=== PATIENT | male | born 1955 | race African-American/Black ===

== ENCOUNTER 2016-12-27 07:22 | Inpatient (IN) | payer OTHER ==
[~2016-12-27] VITALS: Ht 188 cm; Wt 86.2 kg
[2016-12-27 08:52] LABS: ALKALINE PHOSPHATASE 66 U/L (46-116); AMYLASE 59 U/L (25-115); AST/SGOT 33 U/L (15-37); BILIRUBIN TOTAL 0.63 mg/dL (0.20-1.00); CARBON DIOXIDE 28.4 mmol/L (21-32); CHLORIDE SERUM 103 mmol/L (98-107); CHOLESTEROL 136 mg/dL (<200); GLUCOSE SERUM 84 mg/dL (74-106); HDL CHOLESTEROL 40 mg/dL (40-60); LIPASE 2 IU/L (73-393); SODIUM SERUM 138 mmol/L (136-145); T4(THYROXINE) 8.6 ug/dL (4.7-13.3); TOTAL PROTEIN, SERUM 7.8 g/dL (6.4-8.2)
[2016-12-27 08:56] LABS: ALBUMIN 3.2 g/dL (3.4-5.0)
[2016-12-27 09:07] LABS: ALT/SGPT 43 U/L (16-63); CALCIUM 9.3 mg/dL (8.5-10.1); CREATININE SERUM 0.9 mg/dL (0.7-1.3); GFR1 > 60 mL/min
[2016-12-27 09:41] LABS: BASOPHIL % 0.3 % (0-2); PLATELET COUNT 190 x10^3mcL (130-400)
[2016-12-27 09:42] LABS: RED CELL DISTRIBUTION WIDTH 14.6 % (11.5-14.5)
[2016-12-27 10:09] LABS: microscopic required? NO
[2016-12-27] MEDS ORDERED: ABILIFY5 M1 (10:32)
[2016-12-27] MEDS ORDERED: ABILIFY5 M1 PO (10:32)
[2016-12-27] MEDS ORDERED: TESSALON PERLE100 MG PO (10:33)
[2016-12-27] MEDS ORDERED: MIRTAZAPINE15 M2 PO (10:33)
[2016-12-27] MEDS ORDERED: ZESTRIL20 MG PO (10:33)
[2016-12-27] MEDS ORDERED: FLO4 PO (10:34)
[2016-12-27 11:04] LABS: urine erythrocyte NEGATIVE (NEGATIVE)
[2016-12-27 11:25] LABS: AMPHETAMINE QUAL UR NONE DETECTED (NEG <=1000)
[2016-12-27 13:19] VITALS: BP 144/93
[2016-12-27 17:28] VITALS: BP 126/76
[2016-12-27 22:35] VITALS: BP 136/83
[2016-12-28 06:31] VITALS: BP 137/94
[2016-12-28 06:33] LABS: BASOPHIL % 0.1 % (0-2); PLATELET COUNT 230 x10^3mcL (130-400); RED CELL DISTRIBUTION WIDTH 14.5 % (11.5-14.5)
[2016-12-28 07:00] LABS: CARBON DIOXIDE 25.8 mmol/L (21-32); CHLORIDE SERUM 102 mmol/L (98-107); CREATININE SERUM 1.1 mg/dL (0.7-1.3); GFR1 > 60 mL/min; GLUCOSE SERUM 138 mg/dL (74-106); POTASSIUM SERUM 4.3 mmol/L (3.5-5.1); SODIUM SERUM 137 mmol/L (136-145)
[2016-12-28 10:30] VITALS: BP 144/98
[2016-12-28 13:21] VITALS: BP 121/60
[2016-12-28 18:06] VITALS: BP 118/79
[2016-12-28 21:21] VITALS: BP 137/84
[2016-12-29 05:55] VITALS: BP 130/77
[2016-12-29 10:43] VITALS: BP 136/76
[2016-12-29 13:39] VITALS: BP 136/76
[2016-12-29 14:16] VITALS: BP 123/70
== END 2016-12-29 17:46 | disposition other institution (70) | DRG 189 ==
LOC: ED 07:22 → DU 10:21
PROVIDERS: Emergency Medicine; ADMIT Internal Medicine
DX: J96.01 Acute respiratory failure with hypoxia (principal); J44.0 Chronic obstructive pulmonary disease with (acute) lower respiratory infection; J44.1 Chronic obstructive pulmonary disease with (acute) exacerbation; J45.901 Unspecified asthma with (acute) exacerbation; J20.9 Acute bronchitis, unspecified; B19.20 Unspecified viral hepatitis C without hepatic coma; I10 Essential (primary) hypertension; N40.0 Benign prostatic hyperplasia without lower urinary tract symptoms; F15.21 Other stimulant dependence, in remission; K21.9 Gastro-esophageal reflux disease without esophagitis; Z98.1 Arthrodesis status; Z87.891 Personal history of nicotine dependence
CPT/HCPCS: 36600; 80307; 83880; 94150; J1644; J2543; J2920; J2930; J7040; J7613; J7620; J7626; J7644; Q0092